=== PATIENT | female | born 1950 | race Caucasian/White ===

== ENCOUNTER 2017-07-13 08:58 | Day surgery (SDC) | payer BC ==
[2017-07-13] MEDS ORDERED: MIDAZOLAM 1 MG/ML 2 ML INJ (12:13)
[2017-07-13] MEDS ORDERED: FENTAnyl 50 MCG/ML VIAL (12:13)
== END 2017-07-13 16:27 | disposition home or self-care (01) ==
LOC: GIL 08:58
DX: Z12.11 Encounter for screening for malignant neoplasm of colon (principal); D12.6 Benign neoplasm of colon, unspecified; K64.4 Residual hemorrhoidal skin tags; K64.8 Other hemorrhoids; I10 Essential (primary) hypertension; E11.9 Type 2 diabetes mellitus without complications
CPT/HCPCS: 45380; 82962; 88305

== ENCOUNTER 2018-01-17 06:36 | Day surgery (SDC) | payer BC ==
[2018-01-17] MEDS ORDERED: BALANCED SALT SOLN 15 ML OPH IRRIG (07:00)
[2018-01-17] MEDS: MOXIFLOXACIN 0.5% 3 ML OPH OPER ×3 (07:25→07:36)
[2018-01-17] MEDS: SOD CHLORIDE 0.9% 1,000 ML IV (07:25)
[2018-01-17] MEDS ORDERED: MITOMYCIN 5 MG INJ OP (08:00)
[2018-01-17] MEDS: LIDOCAINE 1%/EPI 30 ML INJ (08:22)
[2018-01-17] MEDS ORDERED: HYDROmorphONE 1 MG/5 ML IV SYRINGE IV ×2 (08:30)
[2018-01-17] MEDS ORDERED: LABETALOL HCL 20MG INJ IV (08:30)
[2018-01-17] MEDS ORDERED: hydrALAzine 20 MG INJ IV (08:30)
[2018-01-17] MEDS ORDERED: ONDANSETRON 4 MG INJ IV (08:30)
[2018-01-17] MEDS ORDERED: OXYCODONE/ACETAMINOPHEN (5/325) TAB PO (08:30)
[2018-01-17] MEDS ORDERED: PROPOFOL 20 ML (08:40)
== END 2018-01-17 10:30 | disposition home or self-care (01) ==
LOC: SDS 06:36
DX: H11.002 Unspecified pterygium of left eye (principal); E11.9 Type 2 diabetes mellitus without complications; I10 Essential (primary) hypertension
CPT/HCPCS: 65426; 82962; 88305